=== PATIENT | male | born 1970 | race Caucasian/White ===

== ENCOUNTER 2017-12-19 23:36 | Emergency (ER) | payer OTHER ==
[~2017-12-19] VITALS: Ht 185.4 cm; Wt 99.8 kg
[2017-12-20] MEDS ORDERED: NORCO 5-325 TA1 EAC1 PO (00:07)
[2017-12-20] MEDS ORDERED: FLEXERIL PO (00:07)
[2017-12-20] MEDS ORDERED: ALEVE220 MG PO (00:07)
[2017-12-20 00:45] VITALS: BP 161/106
== END 2017-12-20 00:46 | disposition home or self-care (01) ==
LOC: M.ERS 23:36
DX: M54.5 Low back pain (principal); Z88.1 Allergy status to other antibiotic agents